=== PATIENT | male | born 1945 | race Caucasian/White ===

== ENCOUNTER 2018-10-30 00:18 | Emergency (ER) | payer MEDICARE, OTHER, SELFPAY ==
--- NOTE | 2018-10-29 23:56 | DI.CT.S_ITS ---
PROCEDURE: CT HEAD/BRAIN WO CON INDICATIONS: stroke left sided weakness TECHNIQUE: Noncontrast 4.5 mm thick angled axial sections acquired from the foramen magnum to the vertex, with coronal and sagittal reformats. For radiation dose reduction, the following was used: automated exposure control, adjustment of mA and/or kV according to patient size. COMPARISON: None. FINDINGS: Image quality: Excellent. CSF spaces: Basal cisterns are patent. No extra-axial fluid collections. The ventricles are symmetric in size and shape. Brain: No intracranial bleeds or masses. There is cerebral volume loss for age, with resultant ventricular and sulcal prominence. There are periventricular and deep white matter chronic small vessel ischemic changes. There is intracranial internal carotid artery atherosclerosis. There is a finding on one facet of 2 series necessary for motion artifact that raises concern for right middle cerebral artery thrombus Skull and face: Calvarium and visualized facial bones appear intact, without suspicious lesions. Sinuses: Visualized sinuses and mastoids are clear. IMPRESSION: Possible right middle cerebral artery thrombosis seen on one of the 2 sets of series that extend through this area, and no hemorrhage or mass effect is seen within the brain parenchyma. Note: These findings are concordant with the preliminary interpretation. Dictated by: Roderick Bravo M.D. on 10/30/2018 at 8:57 Approved by: Roderick Bravo M.D. on 10/30/2018 at 9:01
--- NOTE | 2018-10-30 00:25 | DI.CT.S_ITS ---
PROCEDURE: CT ANGIO HEAD AND NECK INDICATIONS: left weakness, right gaze ,code stroke TECHNIQUE: Pre-contrast 4.5 mm thick sections acquired from the foramen magnum to the vertex. After the administration of intravenous contrast, 1 mm thick sections acquired from the aortic arch through the [place]. Post-contrast 4.5 mm thick sections then re-acquired from the foramen magnum to the vertex. 3-dimensional pvzmeea-fbdaqmnwu-setgaxgkzw (MIP) and/or volume rendering reformats were acquired of the central intracranial vasculature and neck separately. COMPARISON: [facility], CT, CT HEAD/BRAIN WO CON, 10/29/2018, 23:52. [facility], CT, CT HEAD/BRAIN WO CON, 10/30/2018, 1:30. FINDINGS: Image quality: Excellent. BRAIN: CSF spaces: Ventricles are normal in size and shape. Basal cisterns are patent. No extra-axial fluid collections. Brain: No midline shift. No intracranial bleeds or masses. [place]-white matter interface appears intact. Skull and face: Calvarium and facial bones appear intact, without suspicious lesions. Orbits appear normal. Sinuses: Sinuses and mastoids are clear. HEAD CT ANGIOGRAPHY: Anterior circulation: The right-sided skull base internal carotid artery is occluded extending cephalad from its origin in the neck. Intracranial internal carotid arteries are normal in size and flow. The flow within the paired anterior cerebral arteries is normal and symmetric. The flow within the middle cerebral arteries is normal and symmetric. The prior noncontrast CT scanning that raise concern for presence of a thrombosed right middle cerebral artery M1 segment, which appears to have represented a volume artifact from the adjacent skull base. This vessel is specifically widely patent. The anterior communicating artery is seen. No aneurysms are seen. Posterior circulation: Visualized portions of the vertebral arteries demonstrate normal caliber, and join to form a normal appearing basilar artery. Flow within the posterior cerebral arteries is normal and symmetric. No aneurysms are seen. NECK CT ANGIOGRAPHY: Carotid system: The great vessels demonstrate a conventional anatomy as they arise from the aortic arch. The origins of the common carotid arteries appear patent. The common carotid arteries demonstrate normal caliber and courses. The bifurcation regions are both patent, with atherosclerotic soft and calcific plaque greater on the right than the left. The left internal carotid arteries demonstrates normal caliber and course but the right proximal internal carotid artery is occluded just beyond its origin, extending into the skull base. Posterior circulation: The origins of the vertebral arteries both appear widely patent. The more superior extracranial portions of both vertebral arteries also demonstrate normal courses and calibers. They join to form a normal appearing basilar artery. Soft tissues: Visualized neck soft tissues demonstrate no suspicious abnormalities. Bones: No suspicious bony lesions. Visualized cervical spine appears normally aligned. 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 Posterior circulation appears patent, cross collateral flow from posterior and left-sided [place] vessels provides widely patent flow through the right sided intracranial arterial vasculature. The right M1 segment middle cerebral artery on noncontrast CT scanning earlier this evening that raise concern for presence of thrombosis within that portion of the right-sided circulation, but this vessel is seen to be widely patent and that concern appears to represent a false positive finding related to volume averaging with the adjacent skull base. Any quantitative measurements of stenosis were performed using NASCET criteria. Dictated by: Roderick Bravo M.D. on 10/30/2018 at 11:30 Approved by: Roderick Bravo M.D. on 10/30/2018 at 11:39
[2018-10-30 00:40] VITALS: BP 134/82; PULSE 102; RESP 18; TEMP 36.4; O2SAT 96
--- NOTE | 2018-10-30 00:44 | ED.NEUROSD ---
HPI - Neuro Symptoms/Deficit General Chief Complaint: Neuro Symptoms/Deficit Stated Complaint: Code Stroke Time Seen by Provider: 10/30/18 00:24 Source: patient, family and EMS Mode of arrival: EMS History of Present Illness HPI Narrative: Patient is a 73-year-old male who presents with sudden-onset left-sided weakness and right-sided gaze. He has a history of atrial fibrillation for which she only takes aspirin metoprolol for. said there lying in bed reading he said good night. At around 11:00 p.m. she heard him trying get up out of bed and heard him fall. She tried to get him back into bed but was unable to she noticed she had significant left-sided weakness and was only looking to the right. EMS says that he actually started moving his left side again around midnight. However it now in the emergency department he is unable to do so. Time: 23:00 Last Observed Normal: 21:30 Timing confirmed by: spouse Location: left face, left arm and left leg History of same: No Severity: severe Quality: weak Relieving factors: none Exacerbating factors: none Context: sudden onset Associated symptoms: denies other symptoms Review of Systems Review of Systems All systems reviewed & are unremarkable except as noted in HPI and below Constitutional Denies chills, Denies fever(s), Denies lethargy and Denies weakness Cardiovascular Reports as per HPI, Denies dyspnea and Denies dyspnea on exertion Respiratory Denies cough, Denies dyspnea, Denies dyspnea on exertion and Denies wheezing Gastrointestinal Gastrointestinal: Denies abdominal pain, Denies change in bowel habits, Denies diarrhea, Denies nausea and Denies vomiting Genitourinary Denies hematuria, Denies flank pain, Denies urinary incontinence and Denies urinary urgency Musculoskeletal Denies back pain, Denies muscle weakness, Denies numbness and Denies tingling Neurologic Reports as per HPI, Denies numbness, Denies tingling and Denies weakness Allergic/Immunologic Denies wheezing PFSH Medical History Atrial fibrillation (Acute) Hyperlipidemia (Acute) Social History Smoking Status: Unknown if ever smoked substance use type: unknown Exam Initial Vital Signs Initial Vital Signs: Vital Signs Temperature 97.5 F L 10/30/18 00:40 Pulse Rate 102 H 10/30/18 00:40 Respiratory Rate 18 10/30/18 00:40 Blood Pressure 134/82 10/30/18 00:40 Pulse Oximetry 96 12/29/18 00:40 Const General: cooperative and comfortable Nutritional Appearance: average body habitus Orientation: alert, awake and oriented x3 HENMT Head: normal to inspection and normocephalic Eyes EOM: EOM intact bilaterally Other: Forced gaze to right Neck Neck: normal visual inspection and full ROM Chest Chest: normal inspection of the chest and normal palpation of entire chest wall Resp Effort & Inspection: normal respiratory effort and able to speak in complete sentences Cardio Rhythm: abnormal rhythm irregularly irregular Heart Sounds: S1 normal and S2 normal GI Palpation: soft, No guarding and No tender Skin General: no rashes or lesions noted, No jaundice and No petechiae Neuro General: alert, awake and oriented x3 Cognition: normal cognition Speech: speech normal Other: Patient initially not moving all left side sensation to light touch on the left completely gone, right side strength 5/5 in upper extremity and lower extremity, no ataxia on the right speech is clear. Patient also seeming to have some vision issues as well, cannot see out of left Scores NIH Stroke Scale Level of Conciousness: Alert, keenly responsive Ask month/age: Answers both questions correctly. Open/close eyes, close hand: Performs both tasks correctly Best gaze horizontal: Partial gaze palsy, can be overcome by finger tracking, head turning Visual espinal: Complete hemianopia Facial palsy: Minor paralysis, flattened nasolabial fold, asymmetry on smiling Left arm drift: No movement Right arm drift: No drift for full 10 sec Left leg drift: No movement Right leg drift: No drift for full 10 sec Limb ataxia: Absent Sensory on face/arms/legs: Severe to total sensory loss, not aware of touch, coma, quadriplegic Best language: No aphasia, normal Dysarthria: Normal Extinction or inattention: Visual, tactile, auditory, spacial or personal inattention to stimuli Total NIH Stroke scale score: 15 Course Orders Ordered: ED Orders 10/29/18 23:56 CT head/brain wo con Stat 10/30/18 00:25 CT angio head and neck Stat Urine Drug Screen, Rapid Stat EKG-12 Lead Stat 10/30/18 00:30 Basic Metabolic Panel Stat Complete Blood Count AUTO DIFF Stat Partial Thromboplastin Time Stat Prothrombin Time INR Stat Troponin I Stat 10/30/18 01:31 CT head/brain wo con Stat Discontinued Medications Alteplase, Recombinant (Activase) 7 mg 0.09 mg/kg (7 mg) IV NOW ONE Stop: 10/30/18 00:49 Last Admin: 10/30/18 00:50 Dose: 7 mg Alteplase, Recombinant (Activase) 64 mg 0.81 mg/kg (64 mg) IV NOW ONE Stop: 10/30/18 00:49 Last Admin: 10/30/18 00:51 Dose: 64 mg Sodium Chloride (Normal Saline 0.9%) 1,000 mls @ 150 mls/hr IV CONT MIKEL Last Infusion: 10/30/18 02:14 Dose: 0 mls/hr Admin: 10/30/18 01:50 Dose: 150 mls/hr Morphine Sulfate (Morphine) 2 mg IV NOW ONE Stop: 10/30/18 02:07 Last Admin: 10/30/18 02:07 Dose: 2 mg Ondansetron HCl (Zofran) 4 mg IV NOW ONE Stop: 10/30/18 02:13 Last Admin: 10/30/18 02:13 Dose: 4 mg Vital Signs - 8 hr 10/30/18 00:40 10/30/18 00:45 10/30/18 01:00 Temperature 97.5 F L 98.6 F Pulse Rate 102 H 65 78 Respiratory Rate 18 18 19 Blood Pressure [Right Arm] 134/82 154/98 H 152/85 H Pulse Oximetry 96 98 98 MDM - Neuro Symptoms/Deficit Lab Data Attestation: I reviewed the patient's lab results. Result diagrams: 10/30/18 00:30 10/30/18 00:30 Lab Results 10/30/18 10/30/18 10/30/18 Range/Units 00:30 00:30 00:30 WBC 7.6 (4.5-11.0) X10^3/uL RBC 4.03 L (4.5-5.9) X10^6/uL Hgb 13.3 L (13.5-17.5) g/dL Hct 38.7 L (41-53) % MCV 96.0 (80-100) fL MCH 33.0 (26-34) PG MCHC 34.4 (30-36) % RDW 13.8 (11.6-14.8) % Plt Count 259 (150-400) X10^3/uL Neut % (Auto) 55.0 (50-75) % Lymph % (Auto) 28.7 (25-40) % [facility] % (Auto) 12.5 (3-14) % Eos % (Auto) 2.8 (2-4) % Baso % (Auto) 1.0 (0-2) % Neut # (Auto) 4200 (1888-4983) /uL PT 13.9 H (10.1-12.7) SECONDS INR 1.2 (0.9-1.3) APTT 26 L (26.4-36.2) SECONDS Sodium (137-145) mmol/L Potassium (3.4-5.1) mmol/L Chloride (98-107) mmol/L Carbon Dioxide (22-32) mmol/L BUN (9-20) mg/dL Creatinine (0.66-1.25) mg/dL Estimated GFR (>60) mL/min BUN/Creatinine Ratio (6-22) Glucose (80-110) mg/dL Calcium (8.4-10.2) mg/dL Troponin I < 0.012 (0.01-0.034) ng/mL 10/30/18 Range/Units 00:30 WBC (4.5-11.0) X10^3/uL RBC (4.5-5.9) X10^6/uL Hgb (13.5-17.5) g/dL Hct (41-53) % MCV (80-100) fL MCH (26-34) PG MCHC (30-36) % RDW (11.6-14.8) % Plt Count (150-400) X10^3/uL Neut % (Auto) (50-75) % Lymph % (Auto) (25-40) % [facility] % (Auto) (3-14) % Eos % (Auto) (2-4) % Baso % (Auto) (0-2) % Neut # (Auto) (5887-2054) /uL PT (10.1-12.7) SECONDS INR (0.9-1.3) APTT (26.4-36.2) SECONDS Sodium 136 L (137-145) mmol/L Potassium 4.1 (3.4-5.1) mmol/L Chloride 100 (98-107) mmol/L Carbon Dioxide 25 (22-32) mmol/L BUN 30 H (9-20) mg/dL Creatinine 1.20 (0.66-1.25) mg/dL Estimated GFR 59.7 L (>60) mL/min BUN/Creatinine Ratio 25.0 H (6-22) Glucose 112 H (80-110) mg/dL Calcium 8.5 (8.4-10.2) mg/dL Troponin I (0.01-0.034) ng/mL Point of Care Testing Glucose POC [address] scan - head: 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 No acute intracranial abnormality identified. Asymmetric positioning. Chronic changes. 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 Atherosclerotic change without hemodynamic significant stenosis on the left. CT head: Moderate calcification of the intracranial ICA including supraclinoid portion. A left to right collateral flow via the anterior communicating artery with opacification of the MCA branches. origin of the right BUSINESS SYSTEMS ANALYST with some collateral flow in the right BUSINESS SYSTEMS ANALYST Head CT #2.:: Radiologist's impression: No intracranial hemorrhage status post tPA. Mild hyperdense vessels the patient is status post angiogram. ECG Data Attestation: I personally reviewed and interpreted this ECG as follows: Prior ECG tracings: not available for review Interpretation: Atrial fibrillation rate [address] changes no priors to compare MDM Narrative Medical decision making narrative: Discussion with patient and at bedside in regards to tPA administration. This point both patient and agree. Aware of possible consequence of intracranial hemorrhage. Consent is signed and in chart. Dr. Ty neurologist at [facility] immediately was consulted. Agrees with tPA administration. He is again updated on head CT reports of hyperdense lesion in right M1 segment. Patient is a thrombectomy candidate. Recommend transferring to [facility]. Patient is able to move left side of the body. He still cannot see a his left eye. Begins developing headache after tPA infusion. Repeat head CT non contrasted. Report is pending suspicious for possible intracranial bleed. I have called all neurology is with update of CT angio and repeat head CT and patient's symptoms. He states that they will repeat the imaging when patient arrives. Repeat head CT is negative for intracranial hemorrhage was part of discussion for transfer of patient. Air lift if is flying but apparently only fixed wing. Arrangements have been made for transfer to [facility] for fixed wing to [place]. At this time ground transport would be 2.5hrs away, this is the quickest mode of transportation at this time. She does agree to fixed wing. I discussed all findings with the patient and spouse, Education has been performed regarding treatment plan, diagnosis, warning signs and symptoms and all concerns have been addressed. Verbally agree with and understood all of the above. Critical Care Time Critical Care Time: Yes Total Critical Care Time: 60 Attestation: The high probability of a clinically significant, sudden or life threatening deterioration of the [cardiovascular] system(s) required my full and direct attention, intervention and personal management. The aggregate critical care time was [45] minutes. This time is in addition to time spent performing reported procedures but includes the following: [x] Data Review and interpretation [x] Patient assessment and monitoring of vital signs [x] Documentation [x] Medication orders and management Discharge Plan Departure Patient Disposition: [facility] Clinical Impression: Acute cerebrovascular accident Discharge Date/Time: 10/30/18 02:27 Interventions: ED Discharge Assessment Last Done: 10/30/18 02:10
[2018-10-30 00:45] VITALS: BP 154/98; PULSE 65; RESP 18; TEMP 37; O2SAT 98
--- NOTE | 2018-10-30 00:48 | ED_ITS ---
HPI - Neuro Symptoms/Deficit General Chief Complaint: Neuro Symptoms/Deficit Stated Complaint: Code Stroke Time Seen by Provider: 10/30/18 00:24 Source: patient, family and EMS Mode of arrival: EMS History of Present Illness HPI Narrative: Patient is a 73-year-old male who presents with sudden-onset left -sided weakness and right-sided gaze. He has a history of atrial fibrillation for which she only takes aspirin metoprolol for. said there lying in bed reading he said good night. At around 11:00 p.m. she heard him trying get up out of bed and heard him fall. She tried to get him back into bed but was unable to she noticed she had significant left-sided weakness and was only looking to the right. EMS says that he actually started moving his left side again around midnight. However it now in the emergency department he is unable to do so. Time: 23:00 Last Observed Normal: 21:30 Timing confirmed by: spouse Location: left face, left arm and left leg History of same: No Severity: severe Quality: weak Relieving factors: none Exacerbating factors: none Context: sudden onset Associated symptoms: denies other symptoms Review of Systems Review of Systems All systems reviewed & are unremarkable except as noted in HPI and below Constitutional Denies chills, Denies fever(s), Denies lethargy and Denies weakness Cardiovascular Reports as per HPI, Denies dyspnea and Denies dyspnea on exertion Respiratory Denies cough, Denies dyspnea, Denies dyspnea on exertion and Denies wheezing Gastrointestinal Gastrointestinal: Denies abdominal pain, Denies change in bowel habits, Denies diarrhea, Denies nausea and Denies vomiting Genitourinary Denies hematuria, Denies flank pain, Denies urinary incontinence and Denies urinary urgency Musculoskeletal Denies back pain, Denies muscle weakness, Denies numbness and Denies tingling Neurologic Reports as per HPI, Denies numbness, Denies tingling and Denies weakness Allergic/Immunologic Denies wheezing PFSH Medical History Atrial fibrillation (Acute) Hyperlipidemia (Acute) Social History Smoking Status: Unknown if ever smoked substance use type: unknown Exam Initial Vital Signs Initial Vital Signs: Vital Signs Temperature 97.5 F L 10/30/18 00:40 Pulse Rate 102 H 10/30/18 00:40 Respiratory Rate 18 10/30/18 00:40 Blood Pressure 134/82 10/30/18 00:40 Pulse Oximetry 96 12/29/18 00:40 Const General: cooperative and comfortable Nutritional Appearance: average body habitus Orientation: alert, awake and oriented x3 HENMT Head: normal to inspection and normocephalic Eyes EOM: EOM intact bilaterally Other: Forced gaze to right Neck Neck: normal visual inspection and full ROM Chest Chest: normal inspection of the chest and normal palpation of entire chest wall Resp Effort & Inspection: normal respiratory effort and able to speak in complete sentences Cardio Rhythm: abnormal rhythm irregularly irregular Heart Sounds: S1 normal and S2 normal GI Palpation: soft, No guarding and No tender Skin General: no rashes or lesions noted, No jaundice and No petechiae Neuro General: alert, awake and oriented x3 Cognition: normal cognition Speech: speech normal Other: Patient initially not moving all left side sensation to light touch on the left completely gone, right side strength 5/5 in upper extremity and lower extremity, no ataxia on the right speech is clear. Patient also seeming to have some vision issues as well, cannot see out of left Scores NIH Stroke Scale Level of Conciousness: Alert, keenly responsive Ask month/age: Answers both questions correctly. Open/close eyes, close hand: Performs both tasks correctly Best gaze horizontal: Partial gaze palsy, can be overcome by finger tracking, head turning Visual espinal: Complete hemianopia Facial palsy: Minor paralysis, flattened nasolabial fold, asymmetry on smiling Left arm drift: No movement Right arm drift: No drift for full 10 sec Left leg drift: No movement Right leg drift: No drift for full 10 sec Limb ataxia: Absent Sensory on face/arms/legs: Severe to total sensory loss, not aware of touch, coma, quadriplegic Best language: No aphasia, normal Dysarthria: Normal Extinction or inattention: Visual, tactile, auditory, spacial or personal inattention to stimuli Total NIH Stroke scale score: 15 Course Orders Ordered: ED Orders 10/29/18 23:56 CT head/brain wo con Stat 10/30/18 00:25 CT angio head and neck Stat Urine Drug Screen, Rapid Stat EKG-12 Lead Stat 10/30/18 00:30 Basic Metabolic Panel Stat Complete Blood Count AUTO DIFF Stat Partial Thromboplastin Time Stat Prothrombin Time INR Stat Troponin I Stat 10/30/18 01:31 CT head/brain wo con Stat Discontinued Medications Alteplase, Recombinant (Activase) 7 mg 0.09 mg/kg (7 mg) IV NOW ONE Stop: 10/30/18 00:49 Last Admin: 10/30/18 00:50 Dose: 7 mg Alteplase, Recombinant (Activase) 64 mg 0.81 mg/kg (64 mg) IV NOW ONE Stop: 10/30/18 00:49 Last Admin: 10/30/18 00:51 Dose: 64 mg Sodium Chloride (Normal Saline 0.9%) 1,000 mls @ 150 mls/hr IV CONT MIKEL Last Infusion: 10/30/18 02:14 Dose: 0 mls/hr Admin: 10/30/18 01:50 Dose: 150 mls/hr Morphine Sulfate (Morphine) 2 mg IV NOW ONE Stop: 10/30/18 02:07 Last Admin: 10/30/18 02:07 Dose: 2 mg Ondansetron HCl (Zofran) 4 mg IV NOW ONE Stop: 10/30/18 02:13 Last Admin: 10/30/18 02:13 Dose: 4 mg Vital Signs - 8 hr 10/30/18 00:40 10/30/18 00:45 10/30/18 01:00 Temperature 97.5 F L 98.6 F Pulse Rate 102 H 65 78 Respiratory Rate 18 18 19 Blood Pressure [Right Arm] 134/82 154/98 H 152/85 H Pulse Oximetry 96 98 98 MDM - Neuro Symptoms/Deficit Lab Data Attestation: I reviewed the patient's lab results. Result diagrams: 10/30/18 00:30 10/30/18 00:30 Lab Results 10/30/18 10/30/18 10/30/18 Range/Units 00:30 00:30 00:30 WBC 7.6 (4.5-11.0) X10^3/uL RBC 4.03 L (4.5-5.9) X10^6/uL Hgb 13.3 L (13.5-17.5) g/dL Hct 38.7 L (41-53) % MCV 96.0 (80-100) fL MCH 33.0 (26-34) PG MCHC 34.4 (30-36) % RDW 13.8 (11.6-14.8) % Plt Count 259 (150-400) X10^3/uL Neut % (Auto) 55.0 (50-75) % Lymph % (Auto) 28.7 (25-40) % Ransom % (Auto) 12.5 (3-14) % Eos % (Auto) 2.8 (2-4) % Baso % (Auto) 1.0 (0-2) % Neut # (Auto) 4200 (5404-1053) /uL PT 13.9 H (10.1-12.7) SECONDS INR 1.2 (0.9-1.3) APTT 26 L (26.4-36.2) SECONDS Sodium (137-145) mmol/L Potassium (3.4-5.1) mmol/L Chloride (98-107) mmol/L Carbon Dioxide (22-32) mmol/L BUN (9-20) mg/dL Creatinine (0.66-1.25) mg/dL Estimated GFR (>60) mL/min BUN/Creatinine Ratio (6-22) Glucose (80-110) mg/dL Calcium (8.4-10.2) mg/dL Troponin I < 0.012 (0.01-0.034) ng/mL 10/30/18 Range/Units 00:30 WBC (4.5-11.0) X10^3/uL RBC (4.5-5.9) X10^6/uL Hgb (13.5-17.5) g/dL Hct (41-53) % MCV (80-100) fL MCH (26-34) PG MCHC (30-36) % RDW (11.6-14.8) % Plt Count (150-400) X10^3/uL Neut % (Auto) (50-75) % Lymph % (Auto) (25-40) % Ransom % (Auto) (3-14) % Eos % (Auto) (2-4) % Baso % (Auto) (0-2) % Neut # (Auto) (0946-5644) /uL PT (10.1-12.7) SECONDS INR (0.9-1.3) APTT (26.4-36.2) SECONDS Sodium 136 L (137-145) mmol/L Potassium 4.1 (3.4-5.1) mmol/L Chloride 100 (98-107) mmol/L Carbon Dioxide 25 (22-32) mmol/L BUN 30 H (9-20) mg/dL Creatinine 1.20 (0.66-1.25) mg/dL Estimated GFR 59.7 L (>60) mL/min BUN/Creatinine Ratio 25.0 H (6-22) Glucose 112 H (80-110) mg/dL Calcium 8.5 (8.4-10.2) mg/dL Troponin I (0.01-0.034) ng/mL Point of Care Testing Glucose POC [address] scan - head: Radiologist's impression: tailings man report: Hyperdense appearance of the proximal right M1 segment best seen series 8 image 10 and series 11, image 25, suspicious for slow flow or thrombus. No acute intracranial abnormality identified. Asymmetric positioning. Chronic changes. 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 Atherosclerotic change without hemodynamic significant stenosis on the left. CT head: Moderate calcification of the intracranial ICA including supraclinoid portion. A left to right collateral flow via the anterior communicating artery with opacification of the MCA branches. origin of the right MAIL DELIVERER with some collateral flow in the right MAIL DELIVERER Head CT #2.:: Radiologist's impression: No intracranial hemorrhage status post tPA. Mild hyperdense vessels the patient is status post angiogram. ECG Data Attestation: I personally reviewed and interpreted this ECG as follows: Prior ECG tracings: not available for review Interpretation: Atrial fibrillation rate [address] changes no priors to compare MDM Narrative Medical decision making narrative: Discussion with patient and at bedside in regards to tPA administration. This point both patient and agree. Aware of possible consequence of intracranial hemorrhage. Consent is signed and in chart. Dr. Ty neurologist at [facility] immediately was consulted. Agrees with tPA administration. He is again updated on head CT reports of hyperdense lesion in right M1 segment. Patient is a thrombectomy candidate. Recommend transferring to [facility]. Patient is able to move left side of the body. He still cannot see a his left eye. Begins developing headache after tPA infusion. Repeat head CT non contrasted. Report is pending suspicious for possible intracranial bleed. I have called all neurology is with update of CT angio and repeat head CT and patient's symptoms. He states that they will repeat the imaging when patient arrives. Repeat head CT is negative for intracranial hemorrhage was part of discussion for transfer of patient. [facility] if is flying but apparently only fixed wing. Arrangements have been made for transfer to [facility] for fixed wing to [place]. At this time ground transport would be 2.5hrs away, this is the quickest mode of transportation at this time. She does agree to fixed wing. I discussed all findings with the patient and spouse, Education has been performed regarding treatment plan, diagnosis, warning signs and symptoms and all concerns have been addressed. Verbally agree with and understood all of the above. Critical Care Time Critical Care Time: Yes Total Critical Care Time: 60 Attestation: The high probability of a clinically significant, sudden or life threatening deterioration of the [cardiovascular] system(s) required my full and direct attention, intervention and personal management. The aggregate critical care time was [45] minutes. This time is in addition to time spent performing reported procedures but includes the following: [x] Data Review and interpretation [x] Patient assessment and monitoring of vital signs [x] Documentation [x] Medication orders and management Discharge Plan Departure Patient Disposition: [facility] Clinical Impression: Acute cerebrovascular accident Discharge Date/Time: 10/30/18 02:27 Interventions: ED Discharge Assessment Last Done: 10/30/18 02:10
[2018-10-30] MEDS: ALTEPLASE 100 MG VIAL 7 MG IV (00:50)
[2018-10-30 00:51] LABS: INR 1.2 (0.9-1.3); Prothrombin Time 13.9 SECONDS (10.1-12.7)
[2018-10-30] MEDS: ALTEPLASE 100 MG VIAL 64 MG IV (00:51)
[2018-10-30 00:52] LABS: Add Manual Diff / Slide Review NO; Eosinophils Percent Auto 2.8 % (2-4); Hematocrit 38.7 % (41-53); Hemoglobin 13.3 g/dL (13.5-17.5); Lymphocytes Percent Auto 28.7 % (25-40); Mean Corpuscular HGB Conc 34.4 % (30-36); Monocytes Percent Auto 12.5 % (3-14); Neutrophils Absolute Auto 4200 /uL (1500-7000); Platelet Count 259 X10^3/uL (150-400); Red Blood Cell Count 4.03 X10^6/uL (4.5-5.9); Red Cell Distribution Width 13.8 % (11.6-14.8); White Blood Cell Count 7.6 X10^3/uL (4.5-11.0)
[2018-10-30 00:53] LABS: PTT Partial Thromboplastin Tim 26 SECONDS (26.4-36.2)
[2018-10-30 01:00] VITALS: BP 152/85; PULSE 78; RESP 19; O2SAT 98
[2018-10-30 01:11] LABS: Troponin I < 0.012 ng/mL (0.01-0.034)
[2018-10-30 01:16] LABS: Blood Urea Nitrogen 30 mg/dL (9-20); Calcium 8.5 mg/dL (8.4-10.2); Carbon Dioxide 25 mmol/L (22-32); Chloride 100 mmol/L (98-107); Estimated Glomerular Filt Rate 59.7 mL/min (>60); Glucose 112 mg/dL (80-110); HEMOLYSIS < 15 (0-50); Potassium 4.1 mmol/L (3.4-5.1); Sodium 136 mmol/L (137-145)
--- NOTE | 2018-10-30 01:31 | DI.CT.S_ITS ---
PROCEDURE: CT HEAD/BRAIN WO CON INDICATIONS: severe posterior headache after tpa TECHNIQUE: Noncontrast 4.5 mm thick angled axial sections acquired from the foramen magnum to the vertex, with coronal and sagittal reformats. For radiation dose reduction, the following was used: automated exposure control, adjustment of mA and/or kV according to patient size. COMPARISON: [facility], CT, CT ANGIO HEAD AND NECK, 10/29/2018, 23:52. [facility], CT, CT HEAD/BRAIN WO CON, 10/29/2018, 23:52. FINDINGS: Image quality: Excellent. CSF spaces: Basal cisterns are patent. No extra-axial fluid collections. The ventricles are symmetric in size and shape. Brain: No intracranial bleeds or masses. There is cerebral volume loss for age, with resultant ventricular and sulcal prominence. There are periventricular and deep white matter chronic small vessel ischemic changes. There is intracranial internal carotid artery atherosclerosis. Skull and face: Calvarium and visualized facial bones appear intact, without suspicious lesions. Sinuses: Visualized sinuses and mastoids are clear. IMPRESSION: Moderate microvascular atherosclerotic change in the deep white matter of each hemisphere, no appreciable change, no hemorrhage. Dictated by: Roderick Bravo M.D. on 10/30/2018 at 8:48 Approved by: Roderick Bravo M.D. on 10/30/2018 at 8:49
--- NOTE | 2018-10-30 01:31 | PC.NURSE ---
pt reports a 7/10 headache moving from the center of his forehead to the back of his head. Provider notified and came to evaluate pt
--- NOTE | 2018-10-30 01:32 | PC.NURSE ---
2 head CTs one with and one without contrast
[2018-10-30] MEDS: SODIUM CHLORIDE 0.9% 1,000 ML 150 ML IV (01:50)
--- NOTE | 2018-10-30 01:52 | PC.NURSE ---
TPA stopped, infusion complete.
[2018-10-30] MEDS: MORPHINE 2 MG/ML INJ IV (02:07)
[2018-10-30] MEDS: ONDANSETRON 4 MG/2 ML INJ IV (02:13)
--- NOTE | 2018-10-30 02:14 | PC.NURSE ---
NS to continue in transport
--- NOTE | 2018-10-30 02:15 | PC.NURSE ---
pt spouse confirmed with EMS and [facility] upon arrival LKN was 0930. At 2315 spouse awoke to a thud finding pt on floor with left sided stroke symptoms and called 911. Pt arrived via ems [place] and a fast exam was performed by [facility]. Pt then went to CT
--- NOTE | 2018-10-30 02:19 | PC.NURSE ---
Pt transfered stat via [facility] ambulance [facility] to meet with fixed wing air [facility].
--- NOTE | 2018-10-30 02:24 | PC.NURSE ---
vital on paper flow sheet in chart.
--- NOTE | 2018-10-30 02:36 | PC.NURSE ---
report called to Irvin johnson RN
== END 2018-10-30 02:27 | disposition short-term general hospital (02) ==
PROVIDERS: Emergency Provider Emergency Medicine; PCP Internal Medicine
DX: I63.9 Cerebral infarction, unspecified (principal)
CPT/HCPCS: 36591; 70450; 70496; 70498; 80048; 82962; 84484; 85025; 85610; 85730; 93005; 96374; 96375; 99283; 99285; 99291; J2270; J2405; J2997; Q9967

== ENCOUNTER 2019-03-17 15:11 | Emergency (ER) | payer MEDICARE, OTHER, SELFPAY ==
[2019-03-17] VITALS (7 sets, daily range): BP systolic 127–143; BP diastolic 74–95; PULSE 73–98; RESP 15–24; TEMP 37.3–37.7; O2SAT 91–98
--- NOTE | 2019-03-17 15:55 | ED.FEVER ---
HPI - Fever <Treasure Covington PA-C - Last Filed: 03/17/19 21:36> General Chief Complaint: Fever Stated Complaint: states fever,vomiting,nausea Time Seen by Provider: 03/17/19 15:55 Source: patient and family Limitations: physical limitation History of Present Illness HPI Narrative: This 73-year-old male is brought to ED secondary to onset of nausea last night after dinner. He complained of feeling like he might be getting the flu yesterday, but had no body aches, fever or respiratory symptoms. He had extra portions at dinner last night, but states afterwards he started complaining of GI upset, vomited food shortly after dinner, then a couple of cups of clear fluid midnight, she states about half cup at 3:00 a.m. and a couple of tbsp at 6:00 a.m., and he has continued to have nausea and gagging. noted fever up to 99.5 at home today, called PCP who advised to come in if fever over 99. Patient has a catheter in place, last replaced 1 week ago, due to overactive bladder and incontinence. He had Botox injections a week ago for this and had 2 doses of Cipro. He has not had any new dysuria or hematuria. He denies any abdominal pain, chest pain, or dyspnea. He denies bowel habit changes or blood in the stools. He does have hemiplegia and fixed dilated pupil as a result of his stroke last year. He has been having ongoing problems with muscle spasms and fasciculations especially in the legs, not acutely worse. He started on Lyrica 2 weeks ago and is on baclofen for this. He is had a little bit of tingling in his right thumb area however he and his have not noted any new changes in strength on that side, speech, coordination or facial droop. Related Data Home Medications Medication Instructions Recorded Confirmed acetaminophen 650 mg PO Q4H PRN 03/17/19 03/17/19 apixaban [Eliquis] 5 mg PO BID 03/17/19 03/17/19 aspirin 81 mg PO DAILY 03/17/19 03/17/19 atorvastatin 40 mg PO QPM 03/17/19 03/17/19 baclofen 20 mg PO TID 03/17/19 03/17/19 brimonidine 1 drp OPHTHALMIC (EYE) BID 03/17/19 03/17/19 duloxetine 40 mg PO DAILY 03/17/19 03/17/19 gabapentin 300 mg PO TID PRN 03/17/19 03/17/19 ketoconazole 1 applic TOPICAL BID 03/17/19 03/17/19 menthol 1 ea PO Q1H PRN 03/17/19 03/17/19 metoprolol tartrate 12.5 mg PO BID 03/17/19 03/17/19 ondansetron HCl 4 mg PO TID PRN 03/17/19 03/17/19 polyethylene glycol 3350 17 g PO PRN PRN 03/17/19 03/17/19 pregabalin [Lyrica] 50 mg PO TID 03/17/19 03/17/19 saliva stimulant comb. no.7 1 applic PO PRN PRN 03/17/19 03/17/19 [Biotene Oralbalance (glycerin)] tramadol 50 mg PO Q8H 03/17/19 03/17/19 trazodone 150 mg PO BEDTIME PRN 03/17/19 03/17/19 Previous Rx's Medication Instructions Recorded ondansetron 4 mg PO Q8H #7 tab 03/17/19 Allergies Allergy/AdvReac Type Severity Reaction Status Date / Time No Known Drug Allergies Allergy Verified 03/17/19 15:21 Review of Systems <Treasure Covington PA-C - Last Filed: 03/17/19 21:36> Review of Systems ROS Unobtainable: All systems reviewed & are unremarkable except as noted in HPI and below PFSH <Treasure Covington PA-C - Last Filed: 03/17/19 21:36> Medical History (Updated 03/17/19 @ 20:24 by Treasure Covington PA-C) Status post CVA (Chronic) Atrial fibrillation (Chronic) Hyperlipidemia (Chronic) Fixed pupil of left eye (Chronic) Hemiplegia (Chronic) Incontinence (Chronic) Overactive bladder (Chronic) Social History (Updated 10/30/18 @ 02:51 by Julianne Null DO) Smoking Status: Former smoker substance use type: unknown Social History Smoking Status: Former smoker substance use type: unknown Exam <Treasure Covington PA-C - Last Filed: 03/17/19 21:36> Narrative Exam Narrative: GENERAL APPEARANCE: Patient sitting comfortably, in no distress. HEENT: Right pupil 3 mm and reactive, with 6 and nonreactive, conjunctiva pink, no scleral icterus NECK: Supple, no masses LUNGS: Clear to auscultation bilaterally. HEART: Rate and rhythm irregular, no murmur ABDOMEN: Soft, nontender, nondistended, bowel sounds present x 4 quadrants, no masses palpable, no hepatosplenomegaly. EXTREMITIES: Mild pitting right lower extremity, moderate on the left, no calf tenderness DERMATOLOGIC: No jaundice or exanthem NEUROLOGIC: Alert, facial droop present, speech is appropriate and eligible, coordination intact on the right, does not move the left upper extremity MUSCULOSKELETAL: Rubber Stamp Dies Inspector strength 5/5 on right, 0 on left Initial Vital Signs Initial Vital Signs: Vital Signs Temperature 99.8 F H 03/17/19 15:21 Pulse Rate 98 H 03/17/19 15:21 Respiratory Rate 20 03/17/19 15:21 Blood Pressure 132/79 03/17/19 15:21 Pulse Oximetry 98 03/17/19 15:21 <Julianne Null DO - Last Filed: 03/18/19 08:34> Initial Vital Signs Initial Vital Signs: Vital Signs Temperature 99.8 F H 03/17/19 15:21 Pulse Rate 98 H 03/17/19 15:21 Respiratory Rate 20 03/17/19 15:21 Blood Pressure 132/79 03/17/19 15:21 Pulse Oximetry 98 03/17/19 15:21 Course <[facility] Last Filed: 03/17/19 21:36> Additional Information: Patient has not had recurrent vomiting since arrival. He has had improvement in his nausea and states he is feeling better. No evidence of acute infection on testing. He has not had abdominal pain. He has had more and softer bowel movements today though no magen diarrhea. Workup consistent with gastroenteritis. He already has Zofran prescribed from today though I did give a prescription for sublingual tablets if needed. Advised follow-up with PCP tomorrow for recheck given his complicated history, and advised return if any acutely worsening symptoms again or new symptoms such as pain or worsening fever. His who is his main caregiver is agreeable. We did talk about imaging studies however given that he has no pain and is feeling better, we elected to forego this after discussion with . Reviewed workup and findings with Dr. Null who is agreeable with plan. Orders Ordered: Discontinued Medications Acetaminophen (Tylenol) 650 mg PO NOW ONE Stop: 03/17/19 18:09 Last Admin: 03/17/19 18:10 Dose: 650 mg Sodium Chloride (Normal Saline 0.9%) 1,000 mls @ 1,000 mls/hr IV BOLUS ONE Stop: 03/17/19 17:14 Last Infusion: 03/17/19 17:28 Dose: 0 mls/hr Admin: 03/17/19 16:24 Dose: 1,000 mls/hr Metoclopramide HCl (Reglan) 10 mg IV NOW ONE Stop: 03/17/19 18:33 Last Admin: 03/17/19 18:40 Dose: 10 mg Ondansetron HCl (Zofran) 4 mg IV NOW ONE Stop: 03/17/19 16:16 Last Admin: 03/17/19 16:24 Dose: 4 mg Pantoprazole Sodium (Protonix) 40 mg IV NOW ONE Stop: 03/17/19 17:10 Last Admin: 03/17/19 17:19 Dose: 40 mg Vital Signs - 8 hr 03/17/19 15:21 03/17/19 16:07 03/17/19 17:00 Temperature 99.8 F H 99.1 F Pulse Rate 98 H 87 73 Respiratory Rate 20 19 19 Blood Pressure 132/79 Blood Pressure [Right Arm] 127/74 140/80 Pulse Oximetry 98 98 91 03/17/19 18:00 03/17/19 19:00 03/17/19 19:30 Temperature Pulse Rate 85 86 Respiratory Rate 17 24 15 Blood Pressure Blood Pressure [Right Arm] 134/95 H 143/90 H 132/80 Pulse Oximetry 93 96 03/17/19 20:48 Temperature Pulse Rate 80 Respiratory Rate 18 Blood Pressure 130/80 Blood Pressure [Right Arm] Pulse Oximetry 97 <Julianne Null, DO - Last Filed: 03/18/19 08:34> Orders Ordered: Discontinued Medications Acetaminophen (Tylenol) 650 mg PO NOW ONE Stop: 03/17/19 18:09 Last Admin: 03/17/19 18:10 Dose: 650 mg Sodium Chloride (Normal Saline 0.9%) 1,000 mls @ 1,000 mls/hr IV BOLUS ONE Stop: 03/17/19 17:14 Last Infusion: 03/17/19 17:28 Dose: 0 mls/hr Admin: 03/17/19 16:24 Dose: 1,000 mls/hr Metoclopramide HCl (Reglan) 10 mg IV NOW ONE Stop: 03/17/19 18:33 Last Admin: 03/17/19 18:40 Dose: 10 mg Ondansetron HCl (Zofran) 4 mg IV NOW ONE Stop: 03/17/19 16:16 Last Admin: 03/17/19 16:24 Dose: 4 mg Pantoprazole Sodium (Protonix) 40 mg IV NOW ONE Stop: 03/17/19 17:10 Last Admin: 03/17/19 17:19 Dose: 40 mg Vital Signs - 8 hr 03/17/19 15:21 03/17/19 16:07 03/17/19 17:00 Temperature 99.8 F H 99.1 F Pulse Rate 98 H 87 73 Respiratory Rate 20 19 19 Blood Pressure 132/79 Blood Pressure [Right Arm] 127/74 140/80 Pulse Oximetry 98 98 91 03/17/19 18:00 03/17/19 19:00 03/17/19 19:30 Temperature Pulse Rate 85 86 Respiratory Rate 17 24 15 Blood Pressure Blood Pressure [Right Arm] 134/95 H 143/90 H 132/80 Pulse Oximetry 93 96 03/17/19 20:48 Temperature Pulse Rate 80 Respiratory Rate 18 Blood Pressure 130/80 Blood Pressure [Right Arm] Pulse Oximetry 97 MDM - Fever <Treasure Covington PA-C - Last Filed: 03/17/19 21:36> Lab Data Attestation: I reviewed the patient's lab results. Result diagrams: 03/17/19 16:05 03/17/19 16:05 Lab Results 03/17/19 03/17/19 03/17/19 Range/Units 16:05 16:05 16:05 WBC 7.0 (4.5-11.0) X10^3/uL RBC 4.58 (4.5-5.9) X10^6/uL Hgb 14.5 (13.5-17.5) g/dL Hct 42.9 (41-53) % MCV 93.8 (80-100) fL MCH 31.7 (26-34) PG MCHC 33.8 (30-36) % RDW 13.9 (11.6-14.8) % Plt Count 235 (150-400) X10^3/uL Neut % (Auto) 84.0 H (50-75) % Lymph % (Auto) 9.5 L (25-40) % [place] % (Auto) 6.0 (3-14) % Eos % (Auto) 0.2 L (2-4) % Baso % (Auto) 0.3 (0-2) % Neut # (Auto) 5800 (6245-9108) /uL Lymph # (Auto) 700 L (7798-3167) /uL [place] # (Auto) 400 (0-900) /uL Eos # (Auto) 0 (0-450) /uL Baso # (Auto) 0 (0-100) /uL PT (10.1-12.7) SECONDS INR (0.9-1.3) APTT (26.4-36.2) SECONDS Sodium 132 L (137-145) mmol/L Potassium 4.0 (3.4-5.1) mmol/L Chloride 96 L (98-107) mmol/L Carbon Dioxide 26 (22-32) mmol/L BUN 15 (9-20) mg/dL Creatinine 0.70 (0.66-1.25) mg/dL Estimated GFR > 60.0 (>60) mL/min BUN/Creatinine Ratio 21.4 (6-22) Glucose 102 (80-110) mg/dL Lactate (0.7-2.1) mmol/L Calcium 8.7 (8.4-10.2) mg/dL Magnesium (1.6-2.3) mg/dL Total Bilirubin 0.7 (0.2-1.3) mg/dL AST 35 (17-59) IU/L ALT 68 (21-72) IU/L Alkaline Phosphatase 66 (38-126) U/L Total Protein 6.7 (6.3-8.2) g/dL Albumin 3.9 (3.5-5.0) g/dL Globulin 2.8 (1.7-4.1) g/dL Albumin/Globulin Ratio 1.4 (1.0-2.8) Lipase 73 (23-300) U/L Urine Color Urine Appearance Urine pH (4.5-8.0) Ur Specific [place] (1.000-1.035) Urine Protein (Negative) Urine Glucose (UA) (Negative) g/dL Urine Ketones (NEGATIVE) Urine Occult Blood (Negative) Urine Nitrate (Negative) Urine Bilirubin (NEGATIVE) Urine Urobilinogen (0.2) E.U./dL Ur Leukocyte Esterase (NEGATIVE) Urine RBC (0-5/HPF) Urine WBC (0-5/HPF) Ur Squamous Epith Cells (0-5/HPF) Urine Bacteria (None) Ur Culture Indicated? 03/17/19 03/17/19 03/17/19 Range/Units 16:05 16:05 16:05 WBC (4.5-11.0) X10^3/uL RBC (4.5-5.9) X10^6/uL Hgb (13.5-17.5) g/dL Hct (41-53) % MCV (80-100) fL MCH (26-34) PG MCHC (30-36) % RDW (11.6-14.8) % Plt Count (150-400) X10^3/uL Neut % (Auto) (50-75) % Lymph % (Auto) (25-40) % [place] % (Auto) (3-14) % Eos % (Auto) (2-4) % Baso % (Auto) (0-2) % Neut # (Auto) (9919-8265) /uL Lymph # (Auto) (8771-9814) /uL [place] # (Auto) (0-900) /uL Eos # (Auto) (0-450) /uL Baso # (Auto) (0-100) /uL PT 17.5 H (10.1-12.7) SECONDS INR 1.5 H (0.9-1.3) APTT 25 L (26.4-36.2) SECONDS Sodium (137-145) mmol/L Potassium (3.4-5.1) mmol/L Chloride (98-107) mmol/L Carbon Dioxide (22-32) mmol/L BUN (9-20) mg/dL Creatinine (0.66-1.25) mg/dL Estimated GFR (>60) mL/min BUN/Creatinine Ratio (6-22) Glucose (80-110) mg/dL Lactate 0.9 (0.7-2.1) mmol/L Calcium (8.4-10.2) mg/dL Magnesium 1.7 (1.6-2.3) mg/dL Total Bilirubin (0.2-1.3) mg/dL AST (17-59) IU/L ALT (21-72) IU/L Alkaline Phosphatase (38-126) U/L Total Protein (6.3-8.2) g/dL Albumin (3.5-5.0) g/dL Globulin (1.7-4.1) g/dL Albumin/Globulin Ratio (1.0-2.8) Lipase (23-300) U/L Urine Color Urine Appearance Urine pH (4.5-8.0) Ur Specific [place] (1.000-1.035) Urine Protein (Negative) Urine Glucose (UA) (Negative) g/dL Urine Ketones (NEGATIVE) Urine Occult Blood (Negative) Urine Nitrate (Negative) Urine Bilirubin (NEGATIVE) Urine Urobilinogen (0.2) E.U./dL Ur Leukocyte Esterase (NEGATIVE) Urine RBC (0-5/HPF) Urine WBC (0-5/HPF) Ur Squamous Epith Cells (0-5/HPF) Urine Bacteria (None) Ur Culture Indicated? 03/17/19 Range/Units 16:55 WBC (4.5-11.0) X10^3/uL RBC (4.5-5.9) X10^6/uL Hgb (13.5-17.5) g/dL Hct (41-53) % MCV (80-100) fL MCH (26-34) PG MCHC (30-36) % RDW (11.6-14.8) % Plt Count (150-400) X10^3/uL Neut % (Auto) (50-75) % Lymph % (Auto) (25-40) % [place] % (Auto) (3-14) % Eos % (Auto) (2-4) % Baso % (Auto) (0-2) % Neut # (Auto) (2994-3263) /uL Lymph # (Auto) (3009-3818) /uL [place] # (Auto) (0-900) /uL Eos # (Auto) (0-450) /uL Baso # (Auto) (0-100) /uL PT (10.1-12.7) SECONDS INR (0.9-1.3) APTT (26.4-36.2) SECONDS Sodium (137-145) mmol/L Potassium (3.4-5.1) mmol/L Chloride (98-107) mmol/L Carbon Dioxide (22-32) mmol/L BUN (9-20) mg/dL Creatinine (0.66-1.25) mg/dL Estimated GFR (>60) mL/min BUN/Creatinine Ratio (6-22) Glucose (80-110) mg/dL Lactate (0.7-2.1) mmol/L Calcium (8.4-10.2) mg/dL Magnesium (1.6-2.3) mg/dL Total Bilirubin (0.2-1.3) mg/dL AST (17-59) IU/L ALT (21-72) IU/L Alkaline Phosphatase (38-126) U/L Total Protein (6.3-8.2) g/dL Albumin (3.5-5.0) g/dL Globulin (1.7-4.1) g/dL Albumin/Globulin Ratio (1.0-2.8) Lipase (23-300) U/L Urine Color Yellow Urine Appearance Clear Urine pH 7.0 (4.5-8.0) Ur Specific [place] 1.010 (1.000-1.035) Urine Protein Negative (Negative) Urine Glucose (UA) Negative (Negative) g/dL Urine Ketones Negative (NEGATIVE) Urine Occult Blood 1+ H (Negative) Urine Nitrate Negative (Negative) Urine Bilirubin Negative (NEGATIVE) Urine Urobilinogen 0.2 (0.2) E.U./dL Ur Leukocyte Esterase Negative (NEGATIVE) Urine RBC 1-5/hpf (0-5/HPF) Urine WBC 0-1/hpf (0-5/HPF) Ur Squamous Epith Cells 0-1 /hpf (0-5/HPF) Urine Bacteria None seen (None) Ur Culture Indicated? Cult not indicated Imaging Data Chest x-ray: Radiologist's impression: [address] [address] XRay Report Signed Patient: Levy,Daphne#: [id number] : 7Acct:[id number] Age/Sex: 73 / MDate of Service: 03/17/19 Loc: ED Accession Number: [id number] Procedure: XR chest 1V Ordering Provider: Treasure Covington P.A-C PROCEDURE: XR CHEST 1V INDICATIONS: fever TECHNIQUE: One view of the chest was acquired. COMPARISON: None. FINDINGS: Surgical changes and devices: None. Lungs and pleura: Lungs are clear. 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 No pleural effusions or pneumothorax. Mediastinum: Mediastinal contours appear normal. Heart size is normal. Bones and chest wall: No suspicious bony lesions. Overlying soft tissues appear unremarkable. IMPRESSION: No acute cardiopulmonary disease process. Dictated by: Rosaura Bernal MD, PhD on 03/17/2019 at 16:31 Approved by: Rosaura Bernal MD, PhD on 03/17/2019 at 16:31 <Julianne Null DO - Last Filed: 03/18/19 08:34> Lab Data Lab Results 03/17/19 03/17/19 03/17/19 Range/Units 16:05 16:05 16:05 WBC 7.0 (4.5-11.0) X10^3/uL RBC 4.58 (4.5-5.9) X10^6/uL Hgb 14.5 (13.5-17.5) g/dL Hct 42.9 (41-53) % MCV 93.8 (80-100) fL MCH 31.7 (26-34) PG MCHC 33.8 (30-36) % RDW 13.9 (11.6-14.8) % Plt Count 235 (150-400) X10^3/uL Neut % (Auto) 84.0 H (50-75) % Lymph % (Auto) 9.5 L (25-40) % [place] % (Auto) 6.0 (3-14) % Eos % (Auto) 0.2 L (2-4) % Baso % (Auto) 0.3 (0-2) % Neut # (Auto) 5800 (0017-7833) /uL Lymph # (Auto) 700 L (9739-1447) /uL [place] # (Auto) 400 (0-900) /uL Eos # (Auto) 0 (0-450) /uL Baso # (Auto) 0 (0-100) /uL PT (10.1-12.7) SECONDS INR (0.9-1.3) APTT (26.4-36.2) SECONDS Sodium 132 L (137-145) mmol/L Potassium 4.0 (3.4-5.1) mmol/L Chloride 96 L (98-107) mmol/L Carbon Dioxide 26 (22-32) mmol/L BUN 15 (9-20) mg/dL Creatinine 0.70 (0.66-1.25) mg/dL Estimated GFR > 60.0 (>60) mL/min BUN/Creatinine Ratio 21.4 (6-22) Glucose 102 (80-110) mg/dL Lactate (0.7-2.1) mmol/L Calcium 8.7 (8.4-10.2) mg/dL Magnesium (1.6-2.3) mg/dL Total Bilirubin 0.7 (0.2-1.3) mg/dL AST 35 (17-59) IU/L ALT 68 (21-72) IU/L Alkaline Phosphatase 66 (38-126) U/L Total Protein 6.7 (6.3-8.2) g/dL Albumin 3.9 (3.5-5.0) g/dL Globulin 2.8 (1.7-4.1) g/dL Albumin/Globulin Ratio 1.4 (1.0-2.8) Lipase 73 (23-300) U/L Urine Color Urine Appearance Urine pH (4.5-8.0) Ur Specific [place] (1.000-1.035) Urine Protein (Negative) Urine Glucose (UA) (Negative) g/dL Urine Ketones (NEGATIVE) Urine Occult Blood (Negative) Urine Nitrate (Negative) Urine Bilirubin (NEGATIVE) Urine Urobilinogen (0.2) E.U./dL Ur Leukocyte Esterase (NEGATIVE) Urine RBC (0-5/HPF) Urine WBC (0-5/HPF) Ur Squamous Epith Cells (0-5/HPF) Urine Bacteria (None) Ur Culture Indicated? 03/17/19 03/17/19 03/17/19 Range/Units 16:05 16:05 16:05 WBC (4.5-11.0) X10^3/uL RBC (4.5-5.9) X10^6/uL Hgb (13.5-17.5) g/dL Hct (41-53) % MCV (80-100) fL MCH (26-34) PG MCHC (30-36) % RDW (11.6-14.8) % Plt Count (150-400) X10^3/uL Neut % (Auto) (50-75) % Lymph % (Auto) (25-40) % [place] % (Auto) (3-14) % Eos % (Auto) (2-4) % Baso % (Auto) (0-2) % Neut # (Auto) (9337-4526) /uL Lymph # (Auto) (6429-4914) /uL [place] # (Auto) (0-900) /uL Eos # (Auto) (0-450) /uL Baso # (Auto) (0-100) /uL PT 17.5 H (10.1-12.7) SECONDS INR 1.5 H (0.9-1.3) APTT 25 L (26.4-36.2) SECONDS Sodium (137-145) mmol/L Potassium (3.4-5.1) mmol/L Chloride (98-107) mmol/L Carbon Dioxide (22-32) mmol/L BUN (9-20) mg/dL Creatinine (0.66-1.25) mg/dL Estimated GFR (>60) mL/min BUN/Creatinine Ratio (6-22) Glucose (80-110) mg/dL Lactate 0.9 (0.7-2.1) mmol/L Calcium (8.4-10.2) mg/dL Magnesium 1.7 (1.6-2.3) mg/dL Total Bilirubin (0.2-1.3) mg/dL AST (17-59) IU/L ALT (21-72) IU/L Alkaline Phosphatase (38-126) U/L Total Protein (6.3-8.2) g/dL Albumin (3.5-5.0) g/dL Globulin (1.7-4.1) g/dL Albumin/Globulin Ratio (1.0-2.8) Lipase (23-300) U/L Urine Color Urine Appearance Urine pH (4.5-8.0) Ur Specific [place] (1.000-1.035) Urine Protein (Negative) Urine Glucose (UA) (Negative) g/dL Urine Ketones (NEGATIVE) Urine Occult Blood (Negative) Urine Nitrate (Negative) Urine Bilirubin (NEGATIVE) Urine Urobilinogen (0.2) E.U./dL Ur Leukocyte Esterase (NEGATIVE) Urine RBC (0-5/HPF) Urine WBC (0-5/HPF) Ur Squamous Epith Cells (0-5/HPF) Urine Bacteria (None) Ur Culture Indicated? 03/17/19 Range/Units 16:55 WBC (4.5-11.0) X10^3/uL RBC (4.5-5.9) X10^6/uL Hgb (13.5-17.5) g/dL Hct (41-53) % MCV (80-100) fL MCH (26-34) PG MCHC (30-36) % RDW (11.6-14.8) % Plt Count (150-400) X10^3/uL Neut % (Auto) (50-75) % Lymph % (Auto) (25-40) % [place] % (Auto) (3-14) % Eos % (Auto) (2-4) % Baso % (Auto) (0-2) % Neut # (Auto) (7416-9085) /uL Lymph # (Auto) (4794-2883) /uL [place] # (Auto) (0-900) /uL Eos # (Auto) (0-450) /uL Baso # (Auto) (0-100) /uL PT (10.1-12.7) SECONDS INR (0.9-1.3) APTT (26.4-36.2) SECONDS Sodium (137-145) mmol/L Potassium (3.4-5.1) mmol/L Chloride (98-107) mmol/L Carbon Dioxide (22-32) mmol/L BUN (9-20) mg/dL Creatinine (0.66-1.25) mg/dL Estimated GFR (>60) mL/min BUN/Creatinine Ratio (6-22) Glucose (80-110) mg/dL Lactate (0.7-2.1) mmol/L Calcium (8.4-10.2) mg/dL Magnesium (1.6-2.3) mg/dL Total Bilirubin (0.2-1.3) mg/dL AST (17-59) IU/L ALT (21-72) IU/L Alkaline Phosphatase (38-126) U/L Total Protein (6.3-8.2) g/dL Albumin (3.5-5.0) g/dL Globulin (1.7-4.1) g/dL Albumin/Globulin Ratio (1.0-2.8) Lipase (23-300) U/L Urine Color Yellow Urine Appearance Clear Urine pH 7.0 (4.5-8.0) Ur Specific [place] 1.010 (1.000-1.035) Urine Protein Negative (Negative) Urine Glucose (UA) Negative (Negative) g/dL Urine Ketones Negative (NEGATIVE) Urine Occult Blood 1+ H (Negative) Urine Nitrate Negative (Negative) Urine Bilirubin Negative (NEGATIVE) Urine Urobilinogen 0.2 (0.2) E.U./dL Ur Leukocyte Esterase Negative (NEGATIVE) Urine RBC 1-5/hpf (0-5/HPF) Urine WBC 0-1/hpf (0-5/HPF) Ur Squamous Epith Cells 0-1 /hpf (0-5/HPF) Urine Bacteria None seen (None) Ur Culture Indicated? Cult not indicated Discharge Plan Departure Patient Disposition: Home Clinical Impression: Gastroenteritis Nausea & vomiting Qualifiers: Vomiting type: unspecified Vomiting Intractability: non-intractable Qualified Code(s): R11.2 - Nausea with vomiting, unspecified Discharge Date/Time: 03/17/19 20:49 Interventions: ED Discharge Assessment Last Done: 03/17/19 20:48 Instructions: Nausea and Vomiting-Adult Activity Restrictions/Additional Instructions: As we talked about, you should return if you have any acutely worsening symptoms again, otherwise you can return home to rest since you have not had any vomiting while you were here. Please try to at least take your Eliquis, gabapentin, and baclofen tonight as these may help you sleep more comfortably. You can try taking these with a little applesauce or Jell-O. Please drink plenty of clear fluids tonight and in the morning, and if you are feeling better, you can try bland food such as what we gave you here, bananas, and white rice, and slowly advance her diet if you are feeling better. We would like you to follow up with your PCP tomorrow for recheck if you are not feeling substantially improved. You can use the nausea medicine that you already got a prescription for today if you need it, and I have printed a prescription for the same pill but dissolve a bull under your tongue if you find that is better for you. Prescriptions: New ondansetron 4 mg tablet,disintegrating 4 mg PO Q8H Qty: 7 RF: 0 No Action atorvastatin 40 mg tablet 40 mg PO QPM RF: 0 trazodone 50 mg tablet 150 mg PO BEDTIME PRN (Reason: Insomnia) RF: 0 ondansetron HCl 4 mg tablet 4 mg PO TID PRN (Reason: Nausea And Vomiting) RF: 0 tramadol 50 mg tablet 50 mg PO Q8H RF: 0 baclofen 20 mg tablet 20 mg PO TID RF: 0 brimonidine 0.2 % drops 1 drp ophthalmic (eye) BID RF: 0 gabapentin 300 mg capsule 300 mg PO TID PRN (Reason: pain) RF: 0 ketoconazole 2 % cream 1 applic topical BID RF: 0 metoprolol tartrate 25 mg tablet 12.5 mg PO BID RF: 0 duloxetine 20 mg capsule,delayed release(DR/EC) 40 mg PO DAILY RF: 0 Lyrica 50 mg capsule 50 mg PO TID RF: 0 Eliquis 5 mg tablet 5 mg PO BID RF: 0 acetaminophen 325 mg Tablet 650 mg PO Q4H PRN (Reason: Fever Or Pain) RF: 0 polyethylene glycol 3350 17 gram Powder In Packet 17 g PO PRN PRN (Reason: Constipation) RF: 0 aspirin 81 mg Tablet,Delayed Release (Dr/Ec) 81 mg PO DAILY RF: 0 Biotene Oralbalance (glycerin) Gel 1 applic PO PRN PRN (Reason: Dry Mouth) RF: 0 menthol 1 ea PO Q1H PRN (Reason: Sore Throat) RF: 0 Referrals: Jerman Dominguez MD [Primary Care Provider] - <Julianne Null DO - Last Filed: 03/18/19 08:34> Cosign ED Attending Viktorature Attestation: I was immediately available in the department for consultation. Documentation has been reviewed. I agree with assessment and plan.
--- NOTE | 2019-03-17 16:15 | DI.RAD.S_ITS ---
PROCEDURE: XR CHEST 1V INDICATIONS: fever TECHNIQUE: One view of the chest was acquired. COMPARISON: None. FINDINGS: Surgical changes and devices: None. Lungs and pleura: Lungs are clear. 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 No pleural effusions or pneumothorax. Mediastinum: Mediastinal contours appear normal. Heart size is normal. Bones and chest wall: No suspicious bony lesions. Overlying soft tissues appear unremarkable. IMPRESSION: No acute cardiopulmonary disease process. Dictated by: Rosaura Bernal MD, PhD on 03/17/2019 at 16:31 Approved by: Rosaura Bernal MD, PhD on 03/17/2019 at 16:31
[2019-03-17 16:24] LABS: Add Manual Diff / Slide Review NO; Basophils Absolute Auto 0 /uL (0-100); Basophils Percent Auto 0.3 % (0-2); Eosinophils Absolute Auto 0 /uL (0-450); Eosinophils Percent Auto 0.2 % (2-4); Hematocrit 42.9 % (41-53); Hemoglobin 14.5 g/dL (13.5-17.5); Lymphocytes Absolute Auto 700 /uL (1100-4500); Lymphocytes Percent Auto 9.5 % (25-40); Mean Corpuscular HGB Conc 33.8 % (30-36); Mean Corpuscular Hemoglobin 31.7 PG (26-34); Mean Corpuscular Volume 93.8 fL (80-100); Monocytes Absolute Auto 400 /uL (0-900); Neutrophils Absolute Auto 5800 /uL (1500-7000); Platelet Count 235 X10^3/uL (150-400); Red Blood Cell Count 4.58 X10^6/uL (4.5-5.9); Red Cell Distribution Width 13.9 % (11.6-14.8)
[2019-03-17] MEDS: ONDANSETRON 4 MG/2 ML INJ IV (16:24)
[2019-03-17] MEDS: SODIUM CHLORIDE 0.9% 1,000 ML 1000 ML IV (16:24)
--- NOTE | 2019-03-17 16:24 | ED_ITS ---
HPI - Fever <Treasure Covington PA-C - Last Filed: 03/17/19 21:36> General Chief Complaint: Fever Stated Complaint: states fever,vomiting,nausea Time Seen by Provider: 03/17/19 15:55 Source: patient and family Limitations: physical limitation History of Present Illness HPI Narrative: This 73-year-old male is brought to ED secondary to onset of nausea last night after dinner. He complained of feeling like he might be getting the flu yesterday, but had no body aches, fever or respiratory symptoms. He had extra portions at dinner last night, but states afterwards he started complaining of GI upset, vomited food shortly after dinner, then a couple of cups of clear fluid midnight, she states about half cup at 3:00 a.m. and a couple of tbsp at 6:00 a.m., and he has continued to have nausea and gagging. noted fever up to 99.5 at home today, called PCP who advised to come in if fever over 99. Patient has a catheter in place, last replaced 1 week ago, due to overactive bladder and incontinence. He had Botox injections a week ago for this and had 2 doses of Cipro. He has not had any new dysuria or hematuria. He denies any abdominal pain, chest pain, or dyspnea. He denies bowel habit changes or blood in the stools. He does have hemiplegia and fixed dilated pupil as a result of his stroke last year. He has been having ongoing problems with muscle spasms and fasciculations especially in the legs, not acutely worse. He started on Lyrica 2 weeks ago and is on baclofen for this. He is had a little bit of tingling in his right thumb area however he and his have not noted any new changes in strength on that side, speech, coordination or facial droop. Related Data Home Medications Medication Instructions Recorded Confirmed acetaminophen 650 mg PO Q4H PRN 03/17/19 03/17/19 apixaban [Eliquis] 5 mg PO BID 03/17/19 03/17/19 aspirin 81 mg PO DAILY 03/17/19 03/17/19 atorvastatin 40 mg PO QPM 03/17/19 03/17/19 baclofen 20 mg PO TID 03/17/19 03/17/19 brimonidine 1 drp OPHTHALMIC (EYE) BID 03/17/19 03/17/19 duloxetine 40 mg PO DAILY 03/17/19 03/17/19 gabapentin 300 mg PO TID PRN 03/17/19 03/17/19 ketoconazole 1 applic TOPICAL BID 03/17/19 03/17/19 menthol 1 ea PO Q1H PRN 03/17/19 03/17/19 metoprolol tartrate 12.5 mg PO BID 03/17/19 03/17/19 ondansetron HCl 4 mg PO TID PRN 03/17/19 03/17/19 polyethylene glycol 3350 17 g PO PRN PRN 03/17/19 03/17/19 pregabalin [Lyrica] 50 mg PO TID 03/17/19 03/17/19 saliva stimulant comb. no.7 1 applic PO PRN PRN 03/17/19 03/17/19 [Biotene Oralbalance (glycerin)] tramadol 50 mg PO Q8H 03/17/19 03/17/19 trazodone 150 mg PO BEDTIME PRN 03/17/19 03/17/19 Previous Rx's Medication Instructions Recorded ondansetron 4 mg PO Q8H #7 tab 03/17/19 Allergies Allergy/AdvReac Type Severity Reaction Status Date / Time No Known Drug Allergies Allergy Verified 03/17/19 15:21 Review of Systems <Treasure Covington PA-C - Last Filed: 03/17/19 21:36> Review of Systems ROS Unobtainable: All systems reviewed & are unremarkable except as noted in HPI and below PFSH <Treasure Covington PA-C - Last Filed: 03/17/19 21:36> Medical History (Updated 03/17/19 @ 20:24 by Treasure Covington PA-C) Status post CVA (Chronic) Atrial fibrillation (Chronic) Hyperlipidemia (Chronic) Fixed pupil of left eye (Chronic) Hemiplegia (Chronic) Incontinence (Chronic) Overactive bladder (Chronic) Social History (Updated 10/30/18 @ 02:51 by Julianne Null DO) Smoking Status: Former smoker substance use type: unknown Social History Smoking Status: Former smoker substance use type: unknown Exam <Treasure Covington PA-C - Last Filed: 03/17/19 21:36> Narrative Exam Narrative: GENERAL APPEARANCE: Patient sitting comfortably, in no distress. HEENT: Right pupil 3 mm and reactive, with 6 and nonreactive, conjunctiva pink, no scleral icterus NECK: Supple, no masses LUNGS: Clear to auscultation bilaterally. HEART: Rate and rhythm irregular, no murmur ABDOMEN: Soft, nontender, nondistended, bowel sounds present x 4 quadrants, no masses palpable, no hepatosplenomegaly. EXTREMITIES: Mild pitting right lower extremity, moderate on the left, no calf tenderness DERMATOLOGIC: No jaundice or exanthem NEUROLOGIC: Alert, facial droop present, speech is appropriate and eligible, coordination intact on the right, does not move the left upper extremity MUSCULOSKELETAL: [employer] strength 5/5 on right, 0 on left Initial Vital Signs Initial Vital Signs: Vital Signs Temperature 99.8 F H 03/17/19 15:21 Pulse Rate 98 H 03/17/19 15:21 Respiratory Rate 20 03/17/19 15:21 Blood Pressure 132/79 03/17/19 15:21 Pulse Oximetry 98 03/17/19 15:21 <Julianne Null DO - Last Filed: 03/18/19 08:34> Initial Vital Signs Initial Vital Signs: Vital Signs Temperature 99.8 F H 03/17/19 15:21 Pulse Rate 98 H 03/17/19 15:21 Respiratory Rate 20 03/17/19 15:21 Blood Pressure 132/79 03/17/19 15:21 Pulse Oximetry 98 03/17/19 15:21 Course <[facility] Last Filed: 03/17/19 21:36> Additional Information: Patient has not had recurrent vomiting since arrival. He has had improvement in his nausea and states he is feeling better. No evidence of acute infection on testing. He has not had abdominal pain. He has had more and softer bowel movements today though no magen diarrhea. Workup consistent with gastroenteritis. He already has Zofran prescribed from today though I did give a prescription for sublingual tablets if needed. Advised follow-up with PCP tomorrow for recheck given his complicated history, and advised return if any acutely worsening symptoms again or new symptoms such as pain or worsening fever. His who is his main caregiver is agreeable. We did talk about imaging studies however given that he has no pain and is feeling better, we elected to forego this after discussion with . Reviewed workup and findings with Dr. Null who is agreeable with plan. Orders Ordered: Discontinued Medications Acetaminophen (Tylenol) 650 mg PO NOW ONE Stop: 03/17/19 18:09 Last Admin: 03/17/19 18:10 Dose: 650 mg Sodium Chloride (Normal Saline 0.9%) 1,000 mls @ 1,000 mls/hr IV BOLUS ONE Stop: 03/17/19 17:14 Last Infusion: 03/17/19 17:28 Dose: 0 mls/hr Admin: 03/17/19 16:24 Dose: 1,000 mls/hr Metoclopramide HCl (Reglan) 10 mg IV NOW ONE Stop: 03/17/19 18:33 Last Admin: 03/17/19 18:40 Dose: 10 mg Ondansetron HCl (Zofran) 4 mg IV NOW ONE Stop: 03/17/19 16:16 Last Admin: 03/17/19 16:24 Dose: 4 mg Pantoprazole Sodium (Protonix) 40 mg IV NOW ONE Stop: 03/17/19 17:10 Last Admin: 03/17/19 17:19 Dose: 40 mg Vital Signs - 8 hr 03/17/19 15:21 03/17/19 16:07 03/17/19 17:00 Temperature 99.8 F H 99.1 F Pulse Rate 98 H 87 73 Respiratory Rate 20 19 19 Blood Pressure 132/79 Blood Pressure [Right Arm] 127/74 140/80 Pulse Oximetry 98 98 91 03/17/19 18:00 03/17/19 19:00 03/17/19 19:30 Temperature Pulse Rate 85 86 Respiratory Rate 17 24 15 Blood Pressure Blood Pressure [Right Arm] 134/95 H 143/90 H 132/80 Pulse Oximetry 93 96 03/17/19 20:48 Temperature Pulse Rate 80 Respiratory Rate 18 Blood Pressure 130/80 Blood Pressure [Right Arm] Pulse Oximetry 97 <Julianne Null, DO - Last Filed: 03/18/19 08:34> Orders Ordered: Discontinued Medications Acetaminophen (Tylenol) 650 mg PO NOW ONE Stop: 03/17/19 18:09 Last Admin: 03/17/19 18:10 Dose: 650 mg Sodium Chloride (Normal Saline 0.9%) 1,000 mls @ 1,000 mls/hr IV BOLUS ONE Stop: 03/17/19 17:14 Last Infusion: 03/17/19 17:28 Dose: 0 mls/hr Admin: 03/17/19 16:24 Dose: 1,000 mls/hr Metoclopramide HCl (Reglan) 10 mg IV NOW ONE Stop: 03/17/19 18:33 Last Admin: 03/17/19 18:40 Dose: 10 mg Ondansetron HCl (Zofran) 4 mg IV NOW ONE Stop: 03/17/19 16:16 Last Admin: 03/17/19 16:24 Dose: 4 mg Pantoprazole Sodium (Protonix) 40 mg IV NOW ONE Stop: 03/17/19 17:10 Last Admin: 03/17/19 17:19 Dose: 40 mg Vital Signs - 8 hr 03/17/19 15:21 03/17/19 16:07 03/17/19 17:00 Temperature 99.8 F H 99.1 F Pulse Rate 98 H 87 73 Respiratory Rate 20 19 19 Blood Pressure 132/79 Blood Pressure [Right Arm] 127/74 140/80 Pulse Oximetry 98 98 91 03/17/19 18:00 03/17/19 19:00 03/17/19 19:30 Temperature Pulse Rate 85 86 Respiratory Rate 17 24 15 Blood Pressure Blood Pressure [Right Arm] 134/95 H 143/90 H 132/80 Pulse Oximetry 93 96 03/17/19 20:48 Temperature Pulse Rate 80 Respiratory Rate 18 Blood Pressure 130/80 Blood Pressure [Right Arm] Pulse Oximetry 97 MDM - Fever <Treasure Covington PA-C - Last Filed: 03/17/19 21:36> Lab Data Attestation: I reviewed the patient's lab results. Result diagrams: 03/17/19 16:05 03/17/19 16:05 Lab Results 03/17/19 03/17/19 03/17/19 Range/Units 16:05 16:05 16:05 WBC 7.0 (4.5-11.0) X10^3/uL RBC 4.58 (4.5-5.9) X10^6/uL Hgb 14.5 (13.5-17.5) g/dL Hct 42.9 (41-53) % MCV 93.8 (80-100) fL MCH 31.7 (26-34) PG MCHC 33.8 (30-36) % RDW 13.9 (11.6-14.8) % Plt Count 235 (150-400) X10^3/uL Neut % (Auto) 84.0 H (50-75) % Lymph % (Auto) 9.5 L (25-40) % [place] % (Auto) 6.0 (3-14) % Eos % (Auto) 0.2 L (2-4) % Baso % (Auto) 0.3 (0-2) % Neut # (Auto) 5800 (3545-9659) /uL Lymph # (Auto) 700 L (8194-3702) /uL [place] # (Auto) 400 (0-900) /uL Eos # (Auto) 0 (0-450) /uL Baso # (Auto) 0 (0-100) /uL PT (10.1-12.7) SECONDS INR (0.9-1.3) APTT (26.4-36.2) SECONDS Sodium 132 L (137-145) mmol/L Potassium 4.0 (3.4-5.1) mmol/L Chloride 96 L (98-107) mmol/L Carbon Dioxide 26 (22-32) mmol/L BUN 15 (9-20) mg/dL Creatinine 0.70 (0.66-1.25) mg/dL Estimated GFR > 60.0 (>60) mL/min BUN/Creatinine Ratio 21.4 (6-22) Glucose 102 (80-110) mg/dL Lactate (0.7-2.1) mmol/L Calcium 8.7 (8.4-10.2) mg/dL Magnesium (1.6-2.3) mg/dL Total Bilirubin 0.7 (0.2-1.3) mg/dL AST 35 (17-59) IU/L ALT 68 (21-72) IU/L Alkaline Phosphatase 66 (38-126) U/L Total Protein 6.7 (6.3-8.2) g/dL Albumin 3.9 (3.5-5.0) g/dL Globulin 2.8 (1.7-4.1) g/dL Albumin/Globulin Ratio 1.4 (1.0-2.8) Lipase 73 (23-300) U/L Urine Color Urine Appearance Urine pH (4.5-8.0) Ur Specific [place] (1.000-1.035) Urine Protein (Negative) Urine Glucose (UA) (Negative) g/dL Urine Ketones (NEGATIVE) Urine Occult Blood (Negative) Urine Nitrate (Negative) Urine Bilirubin (NEGATIVE) Urine Urobilinogen (0.2) E.U./dL Ur Leukocyte Esterase (NEGATIVE) Urine RBC (0-5/HPF) Urine WBC (0-5/HPF) Ur Squamous Epith Cells (0-5/HPF) Urine Bacteria (None) Ur Culture Indicated? 03/17/19 03/17/19 03/17/19 Range/Units 16:05 16:05 16:05 WBC (4.5-11.0) X10^3/uL RBC (4.5-5.9) X10^6/uL Hgb (13.5-17.5) g/dL Hct (41-53) % MCV (80-100) fL MCH (26-34) PG MCHC (30-36) % RDW (11.6-14.8) % Plt Count (150-400) X10^3/uL Neut % (Auto) (50-75) % Lymph % (Auto) (25-40) % [place] % (Auto) (3-14) % Eos % (Auto) (2-4) % Baso % (Auto) (0-2) % Neut # (Auto) (6053-2457) /uL Lymph # (Auto) (2602-3728) /uL [place] # (Auto) (0-900) /uL Eos # (Auto) (0-450) /uL Baso # (Auto) (0-100) /uL PT 17.5 H (10.1-12.7) SECONDS INR 1.5 H (0.9-1.3) APTT 25 L (26.4-36.2) SECONDS Sodium (137-145) mmol/L Potassium (3.4-5.1) mmol/L Chloride (98-107) mmol/L Carbon Dioxide (22-32) mmol/L BUN (9-20) mg/dL Creatinine (0.66-1.25) mg/dL Estimated GFR (>60) mL/min BUN/Creatinine Ratio (6-22) Glucose (80-110) mg/dL Lactate 0.9 (0.7-2.1) mmol/L Calcium (8.4-10.2) mg/dL Magnesium 1.7 (1.6-2.3) mg/dL Total Bilirubin (0.2-1.3) mg/dL AST (17-59) IU/L ALT (21-72) IU/L Alkaline Phosphatase (38-126) U/L Total Protein (6.3-8.2) g/dL Albumin (3.5-5.0) g/dL Globulin (1.7-4.1) g/dL Albumin/Globulin Ratio (1.0-2.8) Lipase (23-300) U/L Urine Color Urine Appearance Urine pH (4.5-8.0) Ur Specific [place] (1.000-1.035) Urine Protein (Negative) Urine Glucose (UA) (Negative) g/dL Urine Ketones (NEGATIVE) Urine Occult Blood (Negative) Urine Nitrate (Negative) Urine Bilirubin (NEGATIVE) Urine Urobilinogen (0.2) E.U./dL Ur Leukocyte Esterase (NEGATIVE) Urine RBC (0-5/HPF) Urine WBC (0-5/HPF) Ur Squamous Epith Cells (0-5/HPF) Urine Bacteria (None) Ur Culture Indicated? 03/17/19 Range/Units 16:55 WBC (4.5-11.0) X10^3/uL RBC (4.5-5.9) X10^6/uL Hgb (13.5-17.5) g/dL Hct (41-53) % MCV (80-100) fL MCH (26-34) PG MCHC (30-36) % RDW (11.6-14.8) % Plt Count (150-400) X10^3/uL Neut % (Auto) (50-75) % Lymph % (Auto) (25-40) % [place] % (Auto) (3-14) % Eos % (Auto) (2-4) % Baso % (Auto) (0-2) % Neut # (Auto) (4169-7081) /uL Lymph # (Auto) (1443-8839) /uL [place] # (Auto) (0-900) /uL Eos # (Auto) (0-450) /uL Baso # (Auto) (0-100) /uL PT (10.1-12.7) SECONDS INR (0.9-1.3) APTT (26.4-36.2) SECONDS Sodium (137-145) mmol/L Potassium (3.4-5.1) mmol/L Chloride (98-107) mmol/L Carbon Dioxide (22-32) mmol/L BUN (9-20) mg/dL Creatinine (0.66-1.25) mg/dL Estimated GFR (>60) mL/min BUN/Creatinine Ratio (6-22) Glucose (80-110) mg/dL Lactate (0.7-2.1) mmol/L Calcium (8.4-10.2) mg/dL Magnesium (1.6-2.3) mg/dL Total Bilirubin (0.2-1.3) mg/dL AST (17-59) IU/L ALT (21-72) IU/L Alkaline Phosphatase (38-126) U/L Total Protein (6.3-8.2) g/dL Albumin (3.5-5.0) g/dL Globulin (1.7-4.1) g/dL Albumin/Globulin Ratio (1.0-2.8) Lipase (23-300) U/L Urine Color Yellow Urine Appearance Clear Urine pH 7.0 (4.5-8.0) Ur Specific [place] 1.010 (1.000-1.035) Urine Protein Negative (Negative) Urine Glucose (UA) Negative (Negative) g/dL Urine Ketones Negative (NEGATIVE) Urine Occult Blood 1+ H (Negative) Urine Nitrate Negative (Negative) Urine Bilirubin Negative (NEGATIVE) Urine Urobilinogen 0.2 (0.2) E.U./dL Ur Leukocyte Esterase Negative (NEGATIVE) Urine RBC 1-5/hpf (0-5/HPF) Urine WBC 0-1/hpf (0-5/HPF) Ur Squamous Epith Cells 0-1 /hpf (0-5/HPF) Urine Bacteria None seen (None) Ur Culture Indicated? Cult not indicated Imaging Data Chest x-ray: Radiologist's impression: [address] [address] XRay Report Signed Patient: Levy,Daphne#: [id number] : 7Acct:[id number] Age/Sex: 73 / MDate of Service: 03/17/19 Loc: ED Accession Number: [id number] Procedure: XR chest 1V Ordering Provider: Treasure Covington P.A-C PROCEDURE: XR CHEST 1V INDICATIONS: fever TECHNIQUE: One view of the chest was acquired. COMPARISON: None. FINDINGS: Surgical changes and devices: None. Lungs and pleura: Lungs are clear. 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 No pleural effusions or pneumothorax. Mediastinum: Mediastinal contours appear normal. Heart size is normal. Bones and chest wall: No suspicious bony lesions. Overlying soft tissues appear unremarkable. IMPRESSION: No acute cardiopulmonary disease process. Dictated by: Rosaura Bernal MD, PhD on 03/17/2019 at 16:31 Approved by: Rosaura Bernal MD, PhD on 03/17/2019 at 16:31 <Julianne Null DO - Last Filed: 03/18/19 08:34> Lab Data Lab Results 03/17/19 03/17/19 03/17/19 Range/Units 16:05 16:05 16:05 WBC 7.0 (4.5-11.0) X10^3/uL RBC 4.58 (4.5-5.9) X10^6/uL Hgb 14.5 (13.5-17.5) g/dL Hct 42.9 (41-53) % MCV 93.8 (80-100) fL MCH 31.7 (26-34) PG MCHC 33.8 (30-36) % RDW 13.9 (11.6-14.8) % Plt Count 235 (150-400) X10^3/uL Neut % (Auto) 84.0 H (50-75) % Lymph % (Auto) 9.5 L (25-40) % [place] % (Auto) 6.0 (3-14) % Eos % (Auto) 0.2 L (2-4) % Baso % (Auto) 0.3 (0-2) % Neut # (Auto) 5800 (6372-3060) /uL Lymph # (Auto) 700 L (7803-5801) /uL [place] # (Auto) 400 (0-900) /uL Eos # (Auto) 0 (0-450) /uL Baso # (Auto) 0 (0-100) /uL PT (10.1-12.7) SECONDS INR (0.9-1.3) APTT (26.4-36.2) SECONDS Sodium 132 L (137-145) mmol/L Potassium 4.0 (3.4-5.1) mmol/L Chloride 96 L (98-107) mmol/L Carbon Dioxide 26 (22-32) mmol/L BUN 15 (9-20) mg/dL Creatinine 0.70 (0.66-1.25) mg/dL Estimated GFR > 60.0 (>60) mL/min BUN/Creatinine Ratio 21.4 (6-22) Glucose 102 (80-110) mg/dL Lactate (0.7-2.1) mmol/L Calcium 8.7 (8.4-10.2) mg/dL Magnesium (1.6-2.3) mg/dL Total Bilirubin 0.7 (0.2-1.3) mg/dL AST 35 (17-59) IU/L ALT 68 (21-72) IU/L Alkaline Phosphatase 66 (38-126) U/L Total Protein 6.7 (6.3-8.2) g/dL Albumin 3.9 (3.5-5.0) g/dL Globulin 2.8 (1.7-4.1) g/dL Albumin/Globulin Ratio 1.4 (1.0-2.8) Lipase 73 (23-300) U/L Urine Color Urine Appearance Urine pH (4.5-8.0) Ur Specific [place] (1.000-1.035) Urine Protein (Negative) Urine Glucose (UA) (Negative) g/dL Urine Ketones (NEGATIVE) Urine Occult Blood (Negative) Urine Nitrate (Negative) Urine Bilirubin (NEGATIVE) Urine Urobilinogen (0.2) E.U./dL Ur Leukocyte Esterase (NEGATIVE) Urine RBC (0-5/HPF) Urine WBC (0-5/HPF) Ur Squamous Epith Cells (0-5/HPF) Urine Bacteria (None) Ur Culture Indicated? 03/17/19 03/17/19 03/17/19 Range/Units 16:05 16:05 16:05 WBC (4.5-11.0) X10^3/uL RBC (4.5-5.9) X10^6/uL Hgb (13.5-17.5) g/dL Hct (41-53) % MCV (80-100) fL MCH (26-34) PG MCHC (30-36) % RDW (11.6-14.8) % Plt Count (150-400) X10^3/uL Neut % (Auto) (50-75) % Lymph % (Auto) (25-40) % [place] % (Auto) (3-14) % Eos % (Auto) (2-4) % Baso % (Auto) (0-2) % Neut # (Auto) (8521-3240) /uL Lymph # (Auto) (9671-1278) /uL [place] # (Auto) (0-900) /uL Eos # (Auto) (0-450) /uL Baso # (Auto) (0-100) /uL PT 17.5 H (10.1-12.7) SECONDS INR 1.5 H (0.9-1.3) APTT 25 L (26.4-36.2) SECONDS Sodium (137-145) mmol/L Potassium (3.4-5.1) mmol/L Chloride (98-107) mmol/L Carbon Dioxide (22-32) mmol/L BUN (9-20) mg/dL Creatinine (0.66-1.25) mg/dL Estimated GFR (>60) mL/min BUN/Creatinine Ratio (6-22) Glucose (80-110) mg/dL Lactate 0.9 (0.7-2.1) mmol/L Calcium (8.4-10.2) mg/dL Magnesium 1.7 (1.6-2.3) mg/dL Total Bilirubin (0.2-1.3) mg/dL AST (17-59) IU/L ALT (21-72) IU/L Alkaline Phosphatase (38-126) U/L Total Protein (6.3-8.2) g/dL Albumin (3.5-5.0) g/dL Globulin (1.7-4.1) g/dL Albumin/Globulin Ratio (1.0-2.8) Lipase (23-300) U/L Urine Color Urine Appearance Urine pH (4.5-8.0) Ur Specific [place] (1.000-1.035) Urine Protein (Negative) Urine Glucose (UA) (Negative) g/dL Urine Ketones (NEGATIVE) Urine Occult Blood (Negative) Urine Nitrate (Negative) Urine Bilirubin (NEGATIVE) Urine Urobilinogen (0.2) E.U./dL Ur Leukocyte Esterase (NEGATIVE) Urine RBC (0-5/HPF) Urine WBC (0-5/HPF) Ur Squamous Epith Cells (0-5/HPF) Urine Bacteria (None) Ur Culture Indicated? 03/17/19 Range/Units 16:55 WBC (4.5-11.0) X10^3/uL RBC (4.5-5.9) X10^6/uL Hgb (13.5-17.5) g/dL Hct (41-53) % MCV (80-100) fL MCH (26-34) PG MCHC (30-36) % RDW (11.6-14.8) % Plt Count (150-400) X10^3/uL Neut % (Auto) (50-75) % Lymph % (Auto) (25-40) % [place] % (Auto) (3-14) % Eos % (Auto) (2-4) % Baso % (Auto) (0-2) % Neut # (Auto) (0494-1149) /uL Lymph # (Auto) (3810-9022) /uL [place] # (Auto) (0-900) /uL Eos # (Auto) (0-450) /uL Baso # (Auto) (0-100) /uL PT (10.1-12.7) SECONDS INR (0.9-1.3) APTT (26.4-36.2) SECONDS Sodium (137-145) mmol/L Potassium (3.4-5.1) mmol/L Chloride (98-107) mmol/L Carbon Dioxide (22-32) mmol/L BUN (9-20) mg/dL Creatinine (0.66-1.25) mg/dL Estimated GFR (>60) mL/min BUN/Creatinine Ratio (6-22) Glucose (80-110) mg/dL Lactate (0.7-2.1) mmol/L Calcium (8.4-10.2) mg/dL Magnesium (1.6-2.3) mg/dL Total Bilirubin (0.2-1.3) mg/dL AST (17-59) IU/L ALT (21-72) IU/L Alkaline Phosphatase (38-126) U/L Total Protein (6.3-8.2) g/dL Albumin (3.5-5.0) g/dL Globulin (1.7-4.1) g/dL Albumin/Globulin Ratio (1.0-2.8) Lipase (23-300) U/L Urine Color Yellow Urine Appearance Clear Urine pH 7.0 (4.5-8.0) Ur Specific [place] 1.010 (1.000-1.035) Urine Protein Negative (Negative) Urine Glucose (UA) Negative (Negative) g/dL Urine Ketones Negative (NEGATIVE) Urine Occult Blood 1+ H (Negative) Urine Nitrate Negative (Negative) Urine Bilirubin Negative (NEGATIVE) Urine Urobilinogen 0.2 (0.2) E.U./dL Ur Leukocyte Esterase Negative (NEGATIVE) Urine RBC 1-5/hpf (0-5/HPF) Urine WBC 0-1/hpf (0-5/HPF) Ur Squamous Epith Cells 0-1 /hpf (0-5/HPF) Urine Bacteria None seen (None) Ur Culture Indicated? Cult not indicated Discharge Plan Departure Patient Disposition: Home Clinical Impression: Gastroenteritis Nausea & vomiting Qualifiers: Vomiting type: unspecified Vomiting Intractability: non-intractable Qualified Code(s): R11.2 - Nausea with vomiting, unspecified Discharge Date/Time: 03/17/19 20:49 Interventions: ED Discharge Assessment Last Done: 03/17/19 20:48 Instructions: Nausea and Vomiting-Adult Activity Restrictions/Additional Instructions: As we talked about, you should return if you have any acutely worsening symptoms again, otherwise you can return home to rest since you have not had any vomiting while you were here. Please try to at least take your Eliquis, gabapentin, and baclofen tonight as these may help you sleep more comfortably. You can try taking these with a little applesauce or Jell-O. Please drink plenty of clear fluids tonight and in the morning, and if you are feeling better, you can try bland food such as what we gave you here, bananas, and white rice, and slowly advance her diet if you are feeling better. We would like you to follow up with your PCP tomorrow for recheck if you are not feeling substantially improved. You can use the nausea medicine that you already got a prescription for today if you need it, and I have printed a prescription for the same pill but dissolve a bull under your tongue if you find that is better for you. Prescriptions: New ondansetron 4 mg tablet,disintegrating 4 mg PO Q8H Qty: 7 RF: 0 No Action atorvastatin 40 mg tablet 40 mg PO QPM RF: 0 trazodone 50 mg tablet 150 mg PO BEDTIME PRN (Reason: Insomnia) RF: 0 ondansetron HCl 4 mg tablet 4 mg PO TID PRN (Reason: Nausea And Vomiting) RF: 0 tramadol 50 mg tablet 50 mg PO Q8H RF: 0 baclofen 20 mg tablet 20 mg PO TID RF: 0 brimonidine 0.2 % drops 1 drp ophthalmic (eye) BID RF: 0 gabapentin 300 mg capsule 300 mg PO TID PRN (Reason: pain) RF: 0 ketoconazole 2 % cream 1 applic topical BID RF: 0 metoprolol tartrate 25 mg tablet 12.5 mg PO BID RF: 0 duloxetine 20 mg capsule,delayed release(DR/EC) 40 mg PO DAILY RF: 0 Lyrica 50 mg capsule 50 mg PO TID RF: 0 Eliquis 5 mg tablet 5 mg PO BID RF: 0 acetaminophen 325 mg Tablet 650 mg PO Q4H PRN (Reason: Fever Or Pain) RF: 0 polyethylene glycol 3350 17 gram Powder In Packet 17 g PO PRN PRN (Reason: Constipation) RF: 0 aspirin 81 mg Tablet,Delayed Release (Dr/Ec) 81 mg PO DAILY RF: 0 Biotene Oralbalance (glycerin) Gel 1 applic PO PRN PRN (Reason: Dry Mouth) RF: 0 menthol 1 ea PO Q1H PRN (Reason: Sore Throat) RF: 0 Referrals: Jerman Dominguez MD [Primary Care Provider] - <Julianne Null DO - Last Filed: 03/18/19 08:34> Cosign ED Attending Viktorature Attestation: I was immediately available in the department for consultation. Documentation has been reviewed. I agree with assessment and plan.
[2019-03-17 16:26] LABS: INR 1.5 (0.9-1.3); Prothrombin Time 17.5 SECONDS (10.1-12.7)
[2019-03-17 16:28] LABS: PTT Partial Thromboplastin Tim 25 SECONDS (26.4-36.2)
--- NOTE | 2019-03-17 16:40 | PC.NURSE ---
Changed urine collection bag to get clean urine specimen
[2019-03-17 16:44] LABS: Lactate (Lactic Acid) 0.9 mmol/L (0.7-2.1); Lipase 73 U/L (23-300); Magnesium 1.7 mg/dL (1.6-2.3)
[2019-03-17 16:45] LABS: Alanine Aminotransferase 68 IU/L (21-72); Albumin 3.9 g/dL (3.5-5.0); Albumin Globulin Ratio 1.4 (1.0-2.8); Alkaline Phosphatase 66 U/L (38-126); Aspartate Aminotransferase 35 IU/L (17-59); BUN Creatinine Ratio 21.4 (6-22); Bilirubin Total 0.7 mg/dL (0.2-1.3); Blood Urea Nitrogen 15 mg/dL (9-20); Calcium 8.7 mg/dL (8.4-10.2); Carbon Dioxide 26 mmol/L (22-32); Chloride 96 mmol/L (98-107); Estimated Glomerular Filt Rate > 60.0 mL/min (>60); Globulin 2.8 g/dL (1.7-4.1); Glucose 102 mg/dL (80-110); HEMOLYSIS < 15 (0-50); Sodium 132 mmol/L (137-145); Total Protein 6.7 g/dL (6.3-8.2)
[2019-03-17 17:08] LABS: Bacteria Urine None Seen
[2019-03-17 17:09] LABS: Appearance Urine UA CLEAR; Bilirubin Urine UA NEGATIVE (NEGATIVE); Color Urine UA YELLOW; Glucose Urine UA NEGATIVE (Negative); Ketones Urine UA NEGATIVE (NEGATIVE); Leukocyte Esterase Urine UA NEGATIVE (NEGATIVE); Nitrite Urine UA NEGATIVE (Negative); Occult Blood Urine UA 1+ (Negative); Protein Urine UA NEGATIVE (Negative); Urobilinogen Urine UA 0.2 E.U./dL (0.2)
[2019-03-17] MEDS: PANTOPRAZOLE 40 MG VIAL IV (17:19)
[2019-03-17 17:21] LABS: Culture Indicated Urine Cult Not Indicated; RBC Urine 1-5/HPF (0-5/HPF); Squamous Epithelial Cell Urine 0-1 /HPF (0-5/HPF); WBC Urine 0-1/HPF (0-5/HPF)
--- NOTE | 2019-03-17 17:54 | PC.NURSE ---
Given gingerale per provider
[2019-03-17] MEDS: ACETAMINOPHEN 325 MG TABLET 650 MG PO (18:10)
[2019-03-17] MEDS: METOCLOPRAMIDE 10 MG/2 ML INJ IV (18:40)
== END 2019-03-17 20:49 | disposition home or self-care (01) ==
PROVIDERS: Emergency Provider Internal Medicine; Family Provider Internal Medicine Geriatric Medicine; PCP Internal Medicine Geriatric Medicine
DX: K52.9 Noninfective gastroenteritis and colitis, unspecified (principal); Z86.73 Personal history of transient ischemic attack (TIA), and cerebral infarction without residual deficits
CPT/HCPCS: 36591; 71045; 80053; 81001; 83605; 83690; 83735; 85025; 85610; 85730; 96361; 96374; 96375; 99283; 99284; C9113; J2405; J2765